=== PATIENT | male | born 1965 | race Asian ===

== ENCOUNTER 2017-01-23 18:32 | Emergency (ER) | payer BC ==
[~2017-01-23] VITALS: Ht 157.5 cm; Wt 58.0 kg
[2017-01-23 18:36] VITALS: BP 116/76
[2017-01-23] MEDS ORDERED: KETOROLAC 30 MG/1 ML IM ONE (19:00)
[2017-01-23] MEDS ORDERED: KETOROLAC 30 MG/1 ML ONE (19:05)
== END 2017-01-23 20:25 | disposition home or self-care (01) ==
LOC: ED 20:00
DX: S16.1XXA Strain of muscle, fascia and tendon at neck level, initial encounter (principal); S29.012A Strain of muscle and tendon of back wall of thorax, initial encounter; V49.9XXA Car occupant (driver) (passenger) injured in unspecified traffic accident, initial encounter; Y93.89 Activity, other specified; Y99.8 Other external cause status; Y92.488 Other paved roadways as the place of occurrence of the external cause
CPT/HCPCS: 72020; 72050; 72072; 96372; 99284; J1885